=== PATIENT | male | born 1965 | race Caucasian/White ===

== ENCOUNTER 2019-01-21 16:43 | Emergency (ER) | payer OTHER ==
[2019-01-21 16:58] VITALS: PULSE 85; TEMP 99.2
[2019-01-21] MEDS ORDERED: LACTULOSE 10 GM/15 ML SOL PO SCH (17:15)
[2019-01-21] MEDS ORDERED: LACTULOSE 10 GM/15 ML SOL ONE (17:22)
[2019-01-21 17:37] LABS: HEMATOCRIT 35 % (39-53); HEMOGLOBIN 11.4 gm/dl (13.5-17.7); MEAN CORPUSCULAR HGB CONC 32.2 gm/dl (32.0-36.0)
[2019-01-21 17:44] LABS: ALBUMIN 1.6 gm/dl (3.4-5.0); BILIRUBIN,TOTAL 10.4 mg/dl (0.2-1.0); CARBON DIOXIDE 26.3 mEq/L (21-32); CREATININE 1.11 mg/dl (0.80-1.30); CRP INFLAMMATORY 5.96 mg/dl (0.00-0.33); TOTAL PROTEIN 5.9 gm/dl (6.4-8.2)
[2019-01-21 17:46] LABS: MEAN CORPUSCULAR VOLUME 106 fL (80-100); POTASSIUM 2.9 mMol/L (3.5-5.1)
[2019-01-21] MEDS ORDERED: POTASSIUM CHLORIDE 10 MEQ TER PO ONE (17:46)
[2019-01-21 17:47] LABS: LACTIC ACID 2.8 mMol/L (0.0-2.0)
[2019-01-21] MEDS ORDERED: POTASSIUM CHLORIDE 10 MEQ TER ONE (18:06)
[2019-01-21 18:13] LABS: ANISOCYTOSIS MOD AMT; BAND NEUTROPHILS % (MANUAL) 2 %; BASOPHILS % (MANUAL) 1 % (0-3); EOSINOPHILS % (MANUAL) 2 % (0-9); LYMPHOCYTES % (MANUAL) 11 % (10-50); MONOCYTES % (MANUAL) 5 % (0-12); NEUTROPHILS % (MANUAL) 79 % (37-80); POIKILOCYTOSIS MOD AMT
[2019-01-21 18:14] LABS: TARGET CELLS PRESENT
[2019-01-21] MEDS ORDERED: CIPROFLOXACIN HCL 500 MG TAB PO SCH (18:45)
[2019-01-21] MEDS ORDERED: ONDANSETRON 4 MG ODT BU ONE (18:57)
[2019-01-21] MEDS ORDERED: ONDANSETRON 4 MG ODT ONE (19:02)
[2019-01-21] MEDS ORDERED: CIPROFLOXACIN HCL 500 MG TAB PO ONE (19:05)
[2019-01-21 19:25] VITALS: BP 121/68; RESP 20; O2SAT 98
== END 2019-01-21 19:15 | disposition home or self-care (01) | DRG 443 ==
LOC: ED 16:43
DX: K76.9 Liver disease, unspecified (principal); K70.31 Alcoholic cirrhosis of liver with ascites; K59.00 Constipation, unspecified; E87.6 Hypokalemia; R94.5 Abnormal results of liver function studies; R50.9 Fever, unspecified
CPT/HCPCS: 36415; 80053; 82140; 82150; 83735; 85007; 85027; 87040; 99283; A9270-GY